=== PATIENT | male | born 1965 | race American Indian/Alaskan Native ===

== ENCOUNTER 2024-06-01 10:15 | Emergency (ER) | payer OTHER, SELFPAY ==
--- NOTE | ~2024-06-01 | XR_ITS ---
EXAMINATION: XR KNEE, RIGHT CLINICAL INFORMATION: Pain and swelling. COMPARISON: None available. TECHNIQUE: Four views of the right knee. FINDINGS: Right knee joint spaces are maintained. There is chondrocalcinosis seen about the lateral joint space compartment. 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 There is a superior patellar spur present. If patient has had traumatic injury with pain overlying the superior patella this could possibly represent an avulsion injury and clinical correlation is suggested. There is some prominence of the proximal patellar tendon which may be related to some edematous change. There appears to be a small suprapatellar effusion. XR/XR knee RT 4V IMPRESSION: Lateral joint space chondrocalcinosis. Bipartite patella for which clinical indication is recommended to rule out a possible avulsion injury. Small effusion. Electronically signed by: Miquel White MD 06/01/2024 01:16 PM EDT
[2024-06-01 10:17] VITALS: BP 131/85; PULSE 103; RESP 20; TEMP 37.2; O2SAT 93; BMI 29.2
--- NOTE | 2024-06-01 12:14 | ED.GENADULT ---
HPI - General Adult General Chief complaint: Ear Problems Stated complaint: L ear ache/R leg pain Time Seen by Provider: 06/01/24 11:21 Source: patient Mode of arrival: ambulatory Limitations: no limitations History of Present Illness ED Provider: Deniz Blount PA-C HPI narrative: 59 yo M with a PMH of T2DM presents to the ED with left ear pain x1 week, left shoulder pain since this AM and right knee pain x 2 weeks. Patient states that the ear pain is on the inside of the ear is similar to when he had an ear infection 6 months ago. Patient states that the left shoulder pain started his neck this morning and has radiated down to the scapular area, but has been improving. He states that he thinks he ?woke up on the wrong side of the bed?. He reports the knee pain has been going on for the past couple of weeks and has been worsening to where he feels like his leg is going to give out when he walks. No recent injury or fall. Patient previously was told that he had tendonitis in that knee. Endorses constant chronic head pressure. Denies CP, SOB, cough, congestion, recent sickness, sore throat, dizziness, paresthesias. Patient has not tried for any of the pain. Last A1c was 9, patient states that he is compliant with all his medications. MD complaint: multiple complaints Onset (ago): week(s) Location: face, left, right, upper extremity and lower extremity Radiation: non-radiation Severity: moderate Quality: aching Pain Consistency: intermittent Relieving factors: rest Exacerbating factors: movement Associated symptoms: denies other symptoms Treatments prior to arrival: none Related Data Previous Rx's ?Medication ?Instructions ?Recorded fluticasone propionate 50 1 spray intranasal BID #16 grams 06/01/24 mcg/actuation nasal spray,suspension (Flonase Allergy Relief) Allergies Allergy/AdvReac Type Severity Reaction Status Date / Time No Known Allergies Allergy Unverified 06/01/24 10:20 Review of Systems Review of Systems: Yes all other systems are reviewed and are negative PMFSH Social History Social History Advance Directives: No Advance Directives Information Provided: No Do you have a plan to hurt others: No Plan Physical Exam ED Vital Signs: Vital Signs - 24 hr 06/01/24 10:17 06/01/24 13:48 06/01/24 13:49 Temperature 98.9 F 98.2 F 98.2 F Pulse Rate 103 H 96 96 Respiratory Rate 20 18 18 Blood Pressure 131/85 128/88 128/88 Pulse Oximetry 93 94 94 Oxygen Delivery Method Room Air Room Air Room Air BMI result Body Mass Index 29.2 Appearance: Alert. Oriented X3. No acute distress. Head: normocephalic, atraumatic. Eyes: Pupils equal, round and reactive to light. ENT: Ear canals patent bilaterally, TMs intact bilaterally, mild erythema to the left external ear canal. No preauricular or postauricular tenderness. Pharynx with mild erythema. No tonsillar swelling or exudate. Neck: Normal inspection. Neck supple. CVS: Normal heart rate and rhythm. Pulses normal. Respiratory: No respiratory distress. Breath sounds normal. Abdomen: Normal external inspection. Skin: Skin warm and dry. Normal skin color. Normal skin turgor. No rashes. Extremities: Left shoulder- full ROM, no swelling, no tenderness to palpation, no erythema or warmth. Right knee- suprapatellar swelling, mild tenderness elicited to palpation of the knee, full ROM, popliteal and DP/PT pulses intact. No erythema, warmth. Neuro/psych: Oriented X 3. Neurovascularly intact. Normal speech and cognition. Medical Decision Making Medical Decision Making [facility] Narrative: 59 yo M with a PMH of T2DM presents to the ED with left ear pain x1 week, left shoulder pain since this AM and right knee pain x 2 weeks. On exam, patient is nontoxic appearing, neurovascularly intact, with ear canals patent bilaterally, TMs intact bilaterally, mild erythema and mild effusion to the left external ear canal. No preauricular or postauricular tenderness. Pharynx with mild erythema. No tonsillar swelling or exudate. Left shoulder- full ROM, no swelling, no tenderness to palpation, no erythema or warmth. Right knee- suprapatellar swelling, mild tenderness elicited to palpation of the knee, full ROM, popliteal and DP/PT pulses intact. No erythema, warmth. Concern for eustachian tube dysfunction, acute otitis media, acute otitis externa, unlikely osteomyelitis or mastoiditis as there is no warmth or tenderness to preauricular or postauricular area. Concern for shoulder muscle sprain, strain, unlikely dislocation or fracture is there is no history of trauma, fall, injury. Concern for knee effusion, arthritis, fracture, dislocation, unlikely cellulitis, osteomyelitis as there is no warmth, erythema, tenderness. Plan: COVID-19, flu, RSV viral swabs; x-ray right knee Viral swabs all came back negative including COVID-19, flu, RSV. X-ray impression below. XR/XR knee RT 4V IMPRESSION: Lateral joint space chondrocalcinosis. Bipartite patella for which clinical indication is recommended to rule out a possible avulsion injury. Small effusion. no trauma to suggest an acute avulsion injury. Patient is safe and stable for discharge. Vital signs stable. Patient to use nasal steroid and follow-up with PCP/ENT for eustachian tube dysfunction. Patient to use Jack bandage for knee compression and follow-up with orthopedics for further evaluation. Differential Diagnosis Differential Diagnoses: The differential diagnosis associated with the presentation includes As above. Lab Data MDM Lab Attestation statement: I reviewed the patient's lab results. Labs: Lab Results 06/01/24 Range/Units 12:05 Influenza Type A (PCR) NEGATIVE (Negative) Influenza Type B (PCR) NEGATIVE (Negative) RSV RNA Qual (PCR) NEGATIVE (Negative) SARS-CoV-2 RNA (RT-PCR) NEGATIVE (Negative) Independent Interpretation I performed an independent interpretation of an: Plain X-Ray Interpretation: xr knee w/ effusion noted, agree w/ radiology read Radiology Impression Discussion of test interpretation with radiology: I have reviewed the radiologist's reading. Prescription Management I considered prescription management with: Pain Medication Chronic Conditions Patient?s care impacted by: Diabetes Social Determinants Patient?s care significantly limited by Social Determinants of Health including: Other Social Determinant of Health (did not have insurance to go to PCP today) Critical Care Time Critical Care Time Critical Care Time: No Discharge Plan Discharge Clinical Impression: Effusion of right knee Dysfunction of eustachian tube Qualifiers: Laterality: left Qualified Code(s): H69.92 - Unspecified Eustachian tube disorder, left ear Left shoulder pain Qualifiers: Chronicity: acute Qualified Code(s): M25.512 - Pain in left shoulder Patient Disposition: Home, Self-Care Instructions: Earache (ED), Swollen Knee Joint (ED), Shoulder Pain (ED) Additional Instructions: your knee x-ray today showed a small joint effusion, small calcium deposits in the cartilage. recommend wearing the provided JACK wrap ice and elevate when possible continue motrin and tylenol follow up with orthopedics for further evaluation and treatment your ear did not have infection but it did have small amount of fluid behind the ear drum, likely due to eustacian tube dysfunction recommend trial of Flonase follow up with your doctor If you develop new or worsening symptoms call 911 or come back to the ER for further evaluation. Prescriptions: New fluticasone propionate [Flonase Allergy Relief] 50 mcg/actuation spray,suspension 1 spray intranasal BID Qty: 16 0RF Rx Instructions: administer into each nostril Referrals: [facility] [Provider Group] Interventions: ED Discharge Assessment Last Done: 06/01/24 13:49 Discharge Date/Time: 06/01/24 13:49 Print Language: Bulgarian
[2024-06-01 12:45] LABS: Influenza A PCR NEGATIVE (Negative); Influenza B PCR NEGATIVE (Negative); Resp Syncy Virus RNA Qual PCR NEGATIVE (Negative); SARS COV2 PCR INHOUSE NEGATIVE (Negative)
[2024-06-01 13:48] VITALS: BP 128/88; PULSE 96; RESP 18; TEMP 36.8; O2SAT 94
[2024-06-01 13:49] VITALS: BP 128/88; PULSE 96; RESP 18; TEMP 36.8; O2SAT 94
== END 2024-06-01 13:49 | disposition home or self-care (01) ==
PROVIDERS: Physician Assistant; Emergency Provider Emergency Medicine
DX: H69.92 Unspecified Eustachian tube disorder, left ear (principal); H92.02 Otalgia, left ear; M79.604 Pain in right leg; M25.512 Pain in left shoulder; Z03.818 Encounter for observation for suspected exposure to other biological agents ruled out
CPT/HCPCS: 0241U; 73564; 99283

== ENCOUNTER 2024-06-10 15:30 | Emergency (ER) | payer OTHER, SELFPAY ==
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
[2024-06-10 15:39] VITALS: BP 133/94; PULSE 109; RESP 18; TEMP 36.7; O2SAT 97; BMI 30.5
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
[2024-06-10 17:20] LABS: IDNOW Serial# 08D9AD1C; Strep A Nucleic Acid Positive (Negative)
[2024-06-10 18:20] VITALS: BP 140/84; PULSE 104; RESP 16; TEMP 36.8; O2SAT 96
[2024-06-10 19:19] VITALS: BP 140/84; PULSE 104; RESP 16; TEMP 36.8; O2SAT 96
== END 2024-06-10 19:20 | disposition home or self-care (01) ==
PROVIDERS: Physician Assistant Medical; Emergency Provider Emergency Medicine
DX: J02.0 Streptococcal pharyngitis (principal); Z04.1 Encounter for examination and observation following transport accident; M19.012 Primary osteoarthritis, left shoulder; M25.512 Pain in left shoulder; M25.552 Pain in left hip; E11.9 Type 2 diabetes mellitus without complications; Z79.899 Other long term (current) drug therapy
CPT/HCPCS: 73030; 73502; 87651; 99282; 99283

== ENCOUNTER 2024-06-24 09:02 | Outpatient (REF) | payer OTHER, SELFPAY | END 2024-06-24 09:03 | disposition home or self-care (01) | LOC: HO.HOSX 09:02 | DX: Z13.89 Encounter for screening for other disorder (principal) ==

== ENCOUNTER 2024-11-11 18:38 | Emergency (ER) | payer OTHER, SELFPAY ==
[2024-11-11 18:40] VITALS: BP 135/79; PULSE 91; RESP 19; TEMP 36.6; O2SAT 98; BMI 29.9
--- NOTE | 2024-11-11 18:44 | ED.GENADULT ---
HPI - General Adult General Chief complaint: Dental/Oral Stated complaint: Sharp tooth pain Time Seen by Provider: 11/11/24 18:44 Source: patient, RN notes reviewed and old records reviewed Mode of arrival: ambulatory Limitations: no limitations History of Present Illness ED Provider: Sudhir DYER narrative: 59-year-old male presents for evaluation of dental pain. Patient reports that he has pain to the left lower molar for the last few days. The pain comes and goes his pain is better when he massages the lower jaw he reports that he was diabetic and he states that he can not take NSAIDs but he has good relief with Tylenol denies any fevers, chills Related Data Previous Rx's ?Medication ?Instructions ?Recorded fluticasone propionate 50 1 spray intranasal BID #16 grams 06/01/24 mcg/actuation nasal spray,suspension (Flonase Allergy Relief) amoxicillin 875 mg-potassium 1 tab PO Q12H 10 days #20 tabs 06/10/24 clavulanate 125 mg tablet naproxen 500 mg tablet 500 mg PO BID PRN pain 7 days #14 06/10/24 tabs amoxicillin 875 mg-potassium 1 tab PO Q12H #14 tabs 11/11/24 clavulanate 125 mg tablet Allergies Allergy/AdvReac Type Severity Reaction Status Date / Time No Known Allergies Allergy Verified 11/11/24 18:41 Review of Systems Constitutional: Constitutional: Denies body ache(s), Denies chills, Denies fever(s) and Denies headache(s) Eyes: Eyes: Denies blurry vision ENT: Reports facial pain, Denies headache(s) and Denies sore throat Comments: pain to the left lower molar Neurologic: Denies headache(s) [facility] Social History Social History Advance Directives: No Advance Directives Information Provided: Yes Do you have a plan to hurt others: No Plan Physical Exam ED Vital Signs: Vital Signs - 24 hr 11/11/24 18:40 11/11/24 18:48 Temperature 98 F 98 F Pulse Rate 91 91 Respiratory Rate 19 19 Blood Pressure 135/79 135/79 Pulse Oximetry 98 98 Oxygen Delivery Method Room Air Room Air BMI result Body Mass Index 29.9 Const General: healthy appearing, comfortable, no acute distress, alert and awake Nutritional Appearance: well nourished Orientation/consciousness: patient oriented x3 HENMT Other: there is a dental fracture to the left lower molar. No surrounding gingival edema, but no abscess. No retropharyngeal edema Head: Yes normocephalic and Yes atraumatic Eyes Eyelids: Yes eyelids normal Conjunctivae: conjunctivae normal Sclerae: sclerae normal Corneas: corneas normal Pupils: Equal, round and reactive pupils present EOM: EOMs intact bilaterally Neck Neck: Yes full ROM Resp Effort & Inspection: normal respiratory effort, able to speak in complete sentences and not labored Skin General skin exam: elasticity normal Neuro General: patient oriented x3 Cranial nerves: Yes Equal, round and reactive pupils present and Yes Bilaterally intact EOM present Cognition (Neuro): normal cognition Extrem Other: Moving all extremities well without any obvious deformities Medical Decision Making Medical Decision Making [facility] Narrative: 59-year-old male presents for evaluation of atypical facial pain. He has a fracture to a left lower molar and likely has a developing infection. There was no abscess. No retropharyngeal edema, no anterior neck swelling. No indication for emergent imaging at this time. Plan to treat with Augmentin and he will follow up with a dentist Differential Diagnosis Differential Diagnoses: The differential diagnosis associated with the presentation includes atypical facial pain Dental caries Dental abscess Gingivitis Discharge Plan Discharge Clinical Impression: Toothache, Atypical face pain Patient Disposition: Home, Self-Care Instructions: Toothache (ED) Additional Instructions: You may continue using Tylenol as needed for pain. Take the Augmentin twice daily for 7 days. It is important that you follow-up with a dentist as soon as possible you should also follow up with your primary doctor, return for new or worsening symptoms Prescriptions: New amoxicillin-pot clavulanate 875-125 mg tablet 1 tab PO Q12H Qty: 14 0RF No Action fluticasone propionate [Flonase Allergy Relief] 50 mcg/actuation spray,suspension 1 spray intranasal BID Qty: 16 0RF Rx Instructions: administer into each nostril amoxicillin-pot clavulanate 875-125 mg tablet 1 tab PO Q12H 10 Days Qty: 20 0RF naproxen 500 mg tablet 500 mg PO BID PRN (Reason: pain) 7 Days Qty: 14 0RF Interventions: ED Discharge Assessment Last Done: 11/11/24 18:48 Discharge Date/Time: 11/11/24 18:49 Print Language: Gambian
[2024-11-11 18:48] VITALS: BP 135/79; PULSE 91; RESP 19; TEMP 36.6; O2SAT 98
== END 2024-11-11 18:49 | disposition home or self-care (01) ==
PROVIDERS: Emergency Provider Emergency Medicine Emergency Medical Services
DX: K08.89 Other specified disorders of teeth and supporting structures (principal); G50.1 Atypical facial pain
CPT/HCPCS: 99282; 99283